=== PATIENT | male | born 1990 | race Caucasian/White ===

== ENCOUNTER 2021-06-14 21:41 | Emergency (ER) | payer OTHER ==
[~2021-06-14] VITALS: Ht 177.8 cm; Wt 71.0 kg
[2021-06-14 23:48] VITALS: BP 128/78
== END 2021-06-14 23:49 | disposition home or self-care (01) | DRG 951 ==
LOC: ED 21:41
DX: Z20.822 Contact with and (suspected) exposure to COVID-19 (principal)

== ENCOUNTER 2025-01-27 16:05 | Emergency (ER) | payer OTHER ==
[~2025-01-27] VITALS: Ht 177.8 cm; Wt 77.0 kg
[2025-01-27 16:17] VITALS: BP 148/100
[2025-01-27 16:45] VITALS: BP 141/103
[2025-01-27 17:00] VITALS: BP 146/112
[2025-01-27 17:15] VITALS: BP 139/101
[2025-01-27 17:28] VITALS: BP 139/101
== END 2025-01-27 17:35 | disposition home or self-care (01) | DRG 605 ==
LOC: ED 16:05
DX: S00.83XA Contusion of other part of head, initial encounter (principal); Y04.0XXA Assault by unarmed brawl or fight, initial encounter; F17.210 Nicotine dependence, cigarettes, uncomplicated